=== PATIENT | female | born 1940 | race Caucasian/White ===

== ENCOUNTER 2016-09-20 04:49 | Inpatient (IN) | payer MEDICARE, OTHER ==
[~2016-09-20] VITALS: Ht 165.1 cm; Wt 69.4 kg
--- NOTE | ~2016-09-20 | HP ---
PATIENT'S NAME: CHARLEE JONES [facility] AGE: 76 Y [address] ROOM: G6309 [place], [place] [address] LOCATION: GPCU ADMIT DATE: 09/20/2016 History & Physical DISCHARGE DATE: FAMILY PHYSICIAN: Dread Mclaughlin MD ATTENDING PHYSICIAN: RENÉ TRINH DATE OF SERVICE: CHIEF COMPLAINT: This is a 76-year-old female with a chief complaint of chest pain. HISTORY OF PRESENT ILLNESS: This is a 76-year-old female who says that around 1:00 a.m. this morning, the patient woke up with substernal chest pain, about 3 to 4/10 in intensity that she described as a burning sensation, it was on and off, last for a few seconds, and radiates to her right shoulder. At the same time, she also has shortness of breath, with nausea and was also diaphoretic. The patient also felt lightheaded, but she did not have any syncope. She went to the bathroom and because she felt lightheaded, the patient fell onto the bathroom floor without any head trauma and without any loss of consciousness. The patient called her daughter on the phone. The daughter came by and called an ambulance. The patient was brought to [facility]. Over there, EKG was performed, showed ST elevation in the lead II, III, and aVF with reciprocal ST depression in lead I and aVL. Sinus rhythm at a heart rate of 69. QRS of 80, AZ of 269, and QTc of 443. The patient was started on ACS protocol regimen and was sent over here by air and underwent cardiac cath, right away and had status post one bare-metal stent to the RCA, and currently, she is in the progressive care unit and chest pain free. The patient also has a newly diagnosed lung mass, probably is lung cancer just last week and she is scheduled to have a lung mass biopsy with our radiologist tomorrow on 09/21/2016, however, this has to be postponed because the patient is on dual anti-platelet therapy after the bare-metal stent that was placed in the RCA today. Please follow up with ductfixing plumber, Dr. Lara to determine the appropriate time to undergo a lung biopsy. REVIEW OF SYSTEMS: As mentioned in the History of Present Illness. All other systems were reviewed and they were negative except for those mentioned in the History of Present Illness. PAST MEDICAL HISTORY: 1. Right lower lung mass likely cancer, diagnosed just 1 week ago in [place], and is scheduled to have a lung biopsy tomorrow with our radiologist on 09/21/2016, but has to be postponed given that the patient currently is PATIENT'S NAME: CHARLEE JONES [facility] AGE: 76 Y [address] ROOM: [place] [address] [facility] ADMIT DATE: 09/20/2016 History & Physical DISCHARGE DATE: FAMILY PHYSICIAN: Dread Mclaughlin MD ATTENDING PHYSICIAN: RENÉ TRINH on dual anti-platelet therapy after the bare-metal stent placed to the RCA. 2. The patient states that she has some kind of a blood disorder, is being followed by Dr. Phillips, but she could not tell me what was the diagnosis. She is not currently on any medication for that problem. She said it is not leukemia and she says it is not lymphoma, but she has no idea what was the name of the problem. She has been followed by Dr. Phillips, as outpatient. 3. Left breast cancer, diagnosed in 1998 without any metastasis and status post chemotherapy and left mastectomy. 4. Hypertension. 5. COPD, on 1 L oxygen nasal cannula at night. 6. Diabetes, type 2. 7. Hypothyroidism. 8. Gastroesophageal reflux disease. ALLERGIES: NO KNOWN DRUG ALLERGIES ACCORDING TO THE PATIENT. HOME MEDICATIONS: Currently are being reconciled. SOCIAL HISTORY: The patient is an active cigarette smoker about two cigarettes per day, but before she used to smoke about 1 pack per day for more than 40 years. She denies any alcohol or any illegal drug use. FAMILY HISTORY: Father from lung cancer from smoking and also had a heart problem, but she has no idea about the details. Her father at old age. Her mother from stroke and also had some heart problem, but she also does not remember any details. She also at old age from a stroke. His brother also had heart problem, but she also has no idea about the details. His brother also from heart problem. PAST SURGICAL HISTORY: 1. Status post left mastectomy. 2. Status post tonsillectomy. PHYSICAL EXAMINATION: VITAL SIGNS: At the time of my dictation, temperature is 98.0, blood pressure 170/71, heart rate of 95, MAP of 114, respirations of 14, and saturation of 92% on 2 L nasal cannula. GENERAL APPEARANCE: Alert and oriented x3, in no acute distress. HEENT: Pupils equally round and reactive to light. Extraocular muscles PATIENT'S NAME: CHARLEE JONES [facility] AGE: 76 Y [address] ROOM: [place] [address] [facility] ADMIT DATE: 09/20/2016 History & Physical DISCHARGE DATE: FAMILY PHYSICIAN: Dread Mclaughlin MD ATTENDING PHYSICIAN: RENÉ TRINH. Anicteric sclerae. Nasal turbinates are normal bilaterally. Moist oral mucosa. NECK: No JVD. CARDIOVASCULAR: Regular rate and rhythm. Normal S1 and S2. No murmurs. No rubs. No gallops. RESPIRATORY: Decreased breath sound in the right lower lung. Some crackles in the right lower lung. Decreased breath sounds diffusely, but no active wheezing, rales, or rhonchi, but she does have some crackles in the right lower lung. ABDOMEN: Obese, soft, nontender, and nondistended. Normal bowel sounds, and no hepatosplenomegaly. Bowel sounds are present. EXTREMITIES: No edema in upper or lower extremities. SKIN: No ulcer. No rash. No cyanosis. Status post cardiac cath site looks good without oozing of blood or hematoma or pseudoaneurysm on palpation. MUSCULOSKELETAL: No joint pain and no muscle pain. Range of motion intact. LABORATORY DATA: Troponin 4.6. White blood cells of 15.2, hemoglobin 11.4, hematocrit 33.4, MCV 103.1, and platelets of 490,000. Glucose 389, BUN 17, and creatinine 1.2. Sodium 133, potassium 4.6, chloride 102, CO2 of 18, and calcium 8.8. Total protein 7.3, albumin 3.1, AST 46, ALT 21, alkaline phosphatase 117, total bilirubin 0.4, magnesium 1.4, anion gap 17.6, and GFR 44. CK-MB 15.8. IMAGING STUDIES: EKG at [place] on 09/20/2016, at 4:[address]-elevation in lead II, III, and aVF with reciprocal ST depression in lead I and aVL. Repeat EKG after the cardiac cath with one bare-metal stent to the RCA on 09/20/2016 at 7:30 a.m. showed T-wave inversion in lead III and aVF, and resolution of the ST depression in I and aVL, and resolution of the ST elevation in lead II. Sinus rhythm, heart rate of 96. AZ of 166, QRS of 84, and QTc of 409. ASSESSMENT AND PLAN: 1. Regarding her inferior wall ST-elevation myocardial infarction status post one bare-metal stent to the right coronary artery: Continue current medications that have already been ordered from post cardiac catheterization order set. The patient is on nitroglycerin and on abciximab, IV fluids, as well as aspirin, Brilinta, Lopressor, enalapril, amlodipine, and also Lipitor and morphine p.r.n. Cycle cardiac enzymes and bedrest. Further plan will depend on clinical course. 2. Regarding her hypertension: Use the IV nitroglycerin drip to titrate for blood pressure control. The goal will be less than 130, but hold if systolic blood pressure is 100. Continue all the oral medications as mentioned in #1. PATIENT'S NAME: CHARLEE JONES [facility] AGE: 76 Y [address] ROOM: [place] [address] [facility] ADMIT DATE: 09/20/2016 History & Physical DISCHARGE DATE: FAMILY PHYSICIAN: Dread Mclaughlin MD ATTENDING PHYSICIAN: RENÉ TRINH 3. Regarding her diabetes, type 2: Check A1c. Continue home medications. Oral regimen with Glucotrol Extended Release 10 mg p.o. b.i.d. with meals. In addition, I will start her on subcutaneous aspart moderate dose a.c. and bedtime. Check the fingerstick right now and give one dose right now. 4. Regarding her right lower lung mass: Concerning for cancer. The patient has an appointment tomorrow with the radiologist here in our hospital on 09/21/2016, for a right lung mass biopsy, however, this had to be canceled and postponed given that the patient is currently on dual anti- platelet therapy. Please touch base with kitchen worker, Dr. Lara to see when is the appropriate time to perform the lung biopsy. 5. Regarding her chronic obstructive pulmonary disease on 1 L nasal cannula at night: Continue oxygen at nasal cannula to titrate for saturation more than 90%. In addition, I will give her Tessalon which is her home medication for the cough. I will get a chest x-ray right now because she does have right lower lung crackles on examination. The patient states that she chronically has leukocytosis and is being followed by Dr. Phillips, but she does not know the details of the diagnosis. She denies any fever or chills or worsening cough. I will also give her nebulization with Xopenex plus Atrovent q.6 hours one dose right now and then p.r.n. by RT for RSS. In addition, also give her Xopenex 1.2 mg nebulization q.2 hours p.r.n. also by RT for RSS. 6. Regarding her hypothyroidism: Continue home medication of levothyroxine. However, I will check a TSH and titrate the dose if necessary. 7. Regarding her left breast cancer diagnosed in 1998 status post chemotherapy and also left mastectomy: No active issue. 8. Regarding her deep venous thrombosis prophylaxis: Currently, she is on abciximab drip. Time spent in care on the day of admission 35 minutes where 20 minutes were spent in counseling, including going over the plan of care and addressing all the questions and concerns for the patient to her satisfaction. The remaining of the time was spent on chart review and interview, and also on physical examination. Further plan will depend on her clinical course. RENÉ TRINH MD CC/modl /[id number] D: [id number] T: [id number] HISTORY & PHYSICAL
--- NOTE | ~2016-09-20 | HP ---
PATIENT'S NAME: CHARLEE JONES [facility] AGE: 76 Y [address] ROOM: [address] [address] [facility] ADMIT DATE: 09/20/2016 History & Physical DISCHARGE DATE: FAMILY PHYSICIAN: Dread Mclaughlin MD ATTENDING PHYSICIAN: RENÉ TRINH DATE OF SERVICE: ADDENDUM: ASSESSMENT AND PLAN: The patient also has a creatinine of 1.2 and GFR of 44, not sure if this is acute kidney injury or chronic kidney disease given that we do not have any prior laboratories to compare. The patient is status post cardiac catheterization, therefore, she had contrast exposure. We will continue IV fluids as currently ordered with normal saline running at 125 mL/hour. In addition to hypertension, the IV nitroglycerin drip will be titrated to keep the systolic blood pressure less than 130. Further plan will depend on clinical course. RENÉ TRINH MD CC/modl /[id number] D: [id number] T: [id number] HISTORY & PHYSICAL
--- NOTE | ~2016-09-20 | ECHO ---
Transthoracic Echocardiography Report (TTE) Demographics Patient Name CHARLEE JONES Date of Study 09/21/2016 Patient Number [id number] Visit Number [id number] Date of 1940 Room Number G6309 Gender Female Number Age 76 year(s) Referring Jane Canada MD Agri Business Agent Mecca Andersen, Physician RT,RVT,RDCS Physician Interpreting Jane Canada MD Supervisor Cloth Winding Physician Supervising Ordering Jane Canada MD, MD/MLP Physician Nurse Stress Immunology Specialist Conclusions Contractility Score Summary Normal Left Ventricular contractility was noted. Summary The estimated left ventricular ejection fraction is 60-65%. Mild concentric left ventricular hypertrophy. Mild mitral annular calcification. Mild mitral regurgitation by color Doppler. Mild tricuspid regurgitation by color Doppler. Procedure Type of Study TTE procedure:2D Echocardiogram, M-Mode, Doppler , Color Doppler. Procedure Date Date: 09/21/2016 Start: 01:16 PM Study Location: Inpatient Portable Technical Quality: Adequate visualization Indications:Chest pain. Appropriate Use Criteria: 9 Patient Status: Routine HR: 89 bpm BP: 118/57 mmHg Allergies - Codiene. - Sulfa. M-Mode/2D Measurements LV Diastolic Dimension: 4 cm LV Systolic Dimension: 2.7 cm LV Septum Diastolic: 1.23 cm LV PW Diastolic: 1.1 cm AO Root Dimension: 2.7 cm Cardiac Output: 5.78 l/min AV Cusp Separation: 1.6 cm RV Diastolic Dimension: 3.31 cm LA volume: 28 ml MV EPSS: 0.4 cm LVOT: 2 cm LVOT VTI: 20.7 cm LV Stroke volume: 65 ml Doppler Measurements AV Peak Velocity: 1.21 m/s MV Peak E-Wave: 1.01 m/s AV Peak Gradient: 5.86 mmHg MV Peak A-Wave: 1.14 m/s AV Mean Gradient: 3 mmHg MV E/A Ratio: 0.89 LVOT Peak Velocity: 0.87 m/s MV P1/2t: 79 msec TR Gradient:22.85 mmHg PV Peak Velocity: 0.95 m/s Estimated RAP:10 mmHg PV Peak Gradient: 3.62 mmHg Estimated RVSP: 33 mmHg Estimated PASP: 32.85 mmHg E' Septal Velocity: 0.06 m/s A' Septal Velocity: 0.1 m/s MV E/E' Ratio: 17.7 Findings Left Ventricle Mild concentric left ventricular hypertrophy. Mild inferolateral hypokinesis Diastolic assessment reveals Grade I diastolic dysfunction. Right Ventricle Normal right ventricle structure and function. Left Atrium Normal left atrial size. Right Atrium Normal right atrial size. Mitral Valve Mild mitral annular calcification. Mild mitral regurgitation by color Doppler. Mild to moderate calcification of the mitral valve. Aortic Valve Normal aortic valve structure and function. Tricuspid Valve Mild tricuspid regurgitation by color Doppler. Pulmonic Valve Normal pulmonic valve structure and function. Pericardial Effusion No evidence of pericardial effusion. Miscellaneous Visualized portions of the aortic root and ascending aorta appear normal in size. Pleural Effusion No evidence of pleural effusion. Contractility Score LV regional wall motion:(0-Non visualized 1-Normal 2-Hypokinesis 3-Akinesis 4-Dyskinesis 5-Aneurysm) Signature dtt: Dread Lara (cardio) dtd: 09/21/16 1316
--- NOTE | ~2016-09-20 | CATH ---
Cardiac Diagnostic + PCI Report Demographics Patient Name ROBERT DESHPANDE Gender Female Date of 1940 Age 76 year(s) Patient Number [id number] Date of Study 09/20/2016 Visit Number [id number] Room Number G6309 Corporate ID Ht 165.1 cm Wt 70.31 kg Referring Jnae Canada MD Primary Physician Physician Arnoldo Ellington MD Performing Jane Canada MD Secondary Physician Physician Diagnostic Jane Canada MD Assisting Physician Physician Interventional Jane Canada MD Physician Certified Appliance Service Technician Physician Findings and Conclusions Diagnostic Findings and Conclusion Severe 1 vessel CAD. Diagnostic Recommendations PCI RCA. Interventional Findings and Conclusion 0.014 Prowater. 2.0 x 20 Emerge 2.5 x 24 Rebel to 2.73 with 0% residual. Interventional Recommendations DAPT x 1 month. Manual pressure for hemostasis. Risk factor modification. Procedure Description The patient was brought to the diagnostic cardiac catheterization-EP laboratory in the fasting, non-sedated state. Informed consent was obtained in the written and verbal form after the risks and benefits were explained. The patient had no further questions and agreed to proceed. The planned puncture-incision site(s) were shaved and prepped with ChloraPrep and draped in the usual sterile manner. Conscious sedation, supplemental oxygen, and pain control medications were delivered by a registered nurse under physician guidance. Surface ECG rhythm, blood pressure measurement, and pulse oximetry were monitored throughout the procedure. Arterial access. The access site was infiltrated with lidocaine. The vessel was entered with the Seldinger technique. A sheath was advanced into the vessel and used for catheter placement. Selective left coronary angiography. A catheter was advanced into the left coronary vessel ostium under Fluoroscopic guidance. Contrast was injected by hand. Images were obtained in multiple projections. Selective right coronary angiography. A catheter was advanced into the right coronary vessel ostium under fluoroscopic guidance. Contrast was injected by hand. Images were obtained in multiple projections. Left heart catheterization. A catheter was advanced across the aortic valve to the left ventricle under fluoroscopic guidance. Resting hemodynamics were obtained. Angioplasty and Stent Placement: A guiding catheter was used to intubate the vessel. A 0.14 wire was then used to cross the lesion. A balloon catheter was placed across the lesion and inflated. The balloon catheter was then removed. A Bare Metal Stent was placed and inflated. Post placement angiograms were performed. Arterial artery hemostasis was achieved. The patient was transferred to a regular nursing floor via cart accompanied by a nurse. The patient left the laboratory in stable condition. Diagnostic Cath Status: Emergency Interventional Cath Status: Emergency Procedure Procedure Type Diagnostic procedure:Angiography:, Coronary Angios /[facility] PCI procedure:Bare Metal Coronary Stent:, RCA Indications: Acute ID. Angiographic Findings Dominance: Right Cardiac Arteries and Lesion Findings LMCA: Lesion on LMCA: Ostial.80% stenosis . Comments:Heavily calcified. Lesion on LMCA: Distal subsection.60% stenosis . LAD: Abnormal.Heavily calcified - diffuse plaque. Diagonal 1 small, okay. LCx: Large, non-dominant. Mild plaque. OM 1 small, okay. OM 2 large, normal. RCA: Abnormal.Calcified. PL small, okay. PDA medium, normal. Lesion on Mid RCA: Mid subsection.99% stenosis 24 mm length reduced to 0%. Pre procedure ALEENA II flow was noted. Post Procedure ALEENA III flow was present. The guidewire cross was successful.The lesion was diagnosed as a high risk lesion.Culprit lesion. Treatment results:Interventional treatment was successful. Devices used - SpectraSciencewater Wire .014 x 180. Number of passes: 1. - Emerge Balloon 2.0 x 20. 2 inflation(s) to a max pressure of: 14 rashmi. - 2.5 x 24 Rebel Stent. 2 inflation(s) to a max pressure of: 16 rashmi. Coronary Tree Procedure Data Procedure Date Date: 09/20/2016Start: 06:20 AMEnd: 07:00 AM Entry Locations - Retrograde Percutaneous access was performed through the Right Femoral artery (Primary location). A 6 Fr sheath was inserted. Hemostasis was successfully obtained using Suture. Closure Comments: Sutured in to be pulled on PCU by RT. Jules. Procedure Medications Order and Administration + + + + + !Time !Medication !Dosage !Route ! + + + + + !09/20/2016 06:31 AM!Heparin (ACC_3) !3000 units!I.V. ! + + + + + !09/20/2016 06:31 AM!Heparin (ACC_3) ! !I.V. drip ! + + + + + !09/20/2016 06:36 AM!Nipride !70 mcg !I.C. ! + + + + + !09/20/2016 06:45 AM!Nipride !100 mcg !I.C. ! + + + + + !09/20/2016 06:54 AM!Brilinta (Ticagrelor) (ACC_20)!180 mg !P.O. ! + + + + + !09/20/2016 06:54 AM!Nitroglycerin !5 mcg/min !I.V. drip ! + + + + + Devices Used - A6 Fr. BS JR 4 Diag. Catheterwas used for:Right coronary angiography. - A6 Fr. BS JL 4 Diag. Catheterwas used for:Left coronary angiography. - A6 Fr. BS Angled Pigtail Diag. Catheterwas used for:LV Pressures. - A6 Fr. JR4 Guide Catheterwas used for:RCA Intervention. Contrast Material - Isovue [id number] ml Fluoroscopy Time: Diagnostic: 8:48 minutes. Total: 8:48 minutes. Fluoroscopy Dose: Diagnostic: 882 mGy. Total: 882 mGy. Estimated Blood Loss: 4 ml. Additional [employer] PCI Information PCI Indication:Immediate PCI for STEMI. The patient was transferred from another facility for immediate PCI for STEMI. Date/time ED Presentation at Referring Facility:09/20/2016 04:50 AM. Non-system Reason for Delay in PCI:None. Medical History Performed Procedures and Imaging Results - No [employer] stress or imaging studies were performed. Allergies - Codiene. - Sulfa. Risk Factors The patient risk factors include:Current/Recent(w/in 1 year) tobacco use. Admission Data Admission Date: 09/20/2016 Admission Time: 06:07 AM Admit Source: Transfer acute care facility Insurance Payors: Medicare. Clinical Evaluation Leading to Procedure - The patient's CAD presentation was assessed as: STEMI. - The patient's anginal syndrome during the past two weeks was assessed as: Class IV according to the [place] Cardiovascular Society Classification System (CCS). Hemodynamics Condition: Rest O2 Consumption: Estimated: 176.77Heart Rate: 93 bpm Pressures (mmHg) +-----+ + !Site !Pressure ! +-----+ + !AO !168/97 (116) ! +-----+ + !LV !159/2 ,22 ! +-----+ + !LV !160/1 ,23 ! +-----+ + !AO !167/62 (107) ! +-----+ + !LV !160/2 ,24 ! +-----+ + !AO !167/66 (109) ! +-----+ + Valve Gradients and Areas + +---------+---------+---------+ +---------+ + !Valve !Peak !Mean !Area !Index !Flow !Source ! + +---------+---------+---------+ +---------+ + !Aortic !0 !0 ! ! ! ! ! + +---------+---------+---------+ +---------+ + !Aortic !0 !0 ! ! ! ! ! + +---------+---------+---------+ +---------+ + Shunts Oxygen Values O2 Consumption 176.77 Discharge Data Discharge Date: 09/22/2016 Hospital Status: Inpatient Signatures dtt: Dread Lara (cardio) dtd: 09/20/16 0620 Physician Self Edit
--- NOTE | ~2016-09-20 | DS ---
PATIENT'S NAME: CHARLEE JONES [facility] AGE: 76 Y [address] ROOM: [address] [place], [place] [address] LOCATION: GPCU ADMIT DATE: 09/20/2016 Discharge Summary DISCHARGE DATE: 09/22/2016 FAMILY PHYSICIAN: Dread Mclaughlin MD ATTENDING PHYSICIAN: Magdi Lawson PRIMARY DIAGNOSES: 1. Inferior wall myocardial infarction. 2. Diabetes. 3. Chronic conditions includes diabetes type 2, essential hypertension, hypothyroidism, and other acute conditions includes acute kidney injury and other chronic conditions includes recent diagnosis of lung mass. LABORATORY DATA: On admission, WBC was 15.2, prior to discharge was 13.4, was stable, H and H on admission was 11.4/33.4, prior to discharge was 10.2/29.7, was also stable throughout the hospital stay. Creatinine on admission was 1.2, prior to discharge was 0.7, potassium on admission was 4.6, prior to discharge was 3.6, was repleted, prior to discharge. Magnesium was 1.4 on admission, was repleted twice with 2 g of magnesium IV, prior to discharge was 1.6, bicarb on admission was 18, prior to discharge was 24. Liver function test was within normal limit. Hemoglobin A1c was 9.1. Total cholesterol was 154, triglycerides was 123, and HDL was 49. Echocardiogram post WY, ejection fraction 60% to 65%, mild left ventricular hypertrophy, mild mitral regurgitation by color Doppler, mild tricuspid regurgitation. HOSPITAL COURSE: For history of present illness, please take a look at the H and P, which was done by Dr. Lawson. The patient was admitted after she had an intervention to a stent put in her RCA and the hospitalist was consulted for medical management. Postprocedure, the patient continued to remain stable, she was kept in the ICU, her medical problems were stable, blood pressure was controlled; and with hydration, her acute kidney injury also resolved. She was visited by Dr. Uribe for the new lung mass and who has set the patient up to continue to follow up with them as outpatient. The Cardiology also did get post WY echocardiogram, which essentially appeared to be stable. The patient also did have some anxiety during the hospital stay, which was controlled with Xanax. Her initial scheduled lung biopsy had to be canceled given the recent WY and the placement of a bare metal stent for which the patient has to be on Brilinta for. Later date of the lung biopsy will be setup by the diagnostic assistant and the oncologist; so, on the day of discharge, vital signs were stable, and the patient was discharged home. MEDICATIONS ON DISCHARGE: Includes: 1. Norvasc 2.5 mg p.o. at bedtime, dose change. 2. Aspirin 81 mg p.o. daily. 3. Lipitor 80 mg p.o. daily, new medication. PATIENT'S NAME: CHARLEE JONES [facility] AGE: 76 Y [address] ROOM: [place] [address] [facility] ADMIT DATE: 09/20/2016 Discharge Summary DISCHARGE DATE: 09/22/2016 FAMILY PHYSICIAN: Dread Mclaughlin MD ATTENDING PHYSICIAN: Magdi Lawson 4. Vasotec 2.5 mg p.o. daily, new medication. 5. Glipizide 20 mg p.o. twice daily before meals. 6. Hydroxyurea 1 g p.o. daily q.h.s. 7. Xalatan 1 drop ophthalmic every night at bedtime. 8. Synthroid 112 mcg p.o. daily before breakfast. 9. Magnesium oxide 400 mg b.i.d. 10. Multivitamin 1 tablet p.o. daily. 11. Lopressor 25 mg p.o. twice daily. 12. Prilosec 20 mg p.o. twice daily. 13. Brilinta 90 mg p.o. twice daily. 14. Sleep aid 50 mg p.o. q.h.s. p.r.n. 15. Tessalon 100 mg p.o. 3 times daily p.r.n., new medication. 16. Percocet 5/325 mg 1 tablet p.o. q.6 h. p.r.n. 17. Advair 250/50 Diskus 1 puff twice daily. MD MYLES CARVALHO/alexandro /[id number] d: 09/23/16 0102 t: 09/27/16 1303, DISCHARGE SUMMARY
--- NOTE | ~2016-09-20 | CON ---
PATIENT'S NAME: CHARLEE JONES [facility] AGE: 76 Y [address] ROOM: [address] [place], [place] [address] LOCATION: GPCU ADMIT DATE: 09/20/2016 Consultation DISCHARGE DATE: 09/22/2016 FAMILY PHYSICIAN: Dread Mclaughlin MD ATTENDING PHYSICIAN: Magdi Lawson DATE OF CONSULTATION: 09/20/2016 REFERRING PHYSICIAN: Dread Denton MD REFERRING PHYSICIAN: Norberto Whittington PA-C. HISTORY OF PRESENT ILLNESS: This is a 76-year-old female, who states that she awoken around 1 a.m. on day of admission. She had substernal chest pain, rating at about 4/10. She described it as a burning sensation and it waxed and waned for a few seconds, then it radiated into her right shoulder. She became very short of breath and nauseous with this. She was also quite diaphoretic. She then felt kind of lightheaded and was going to go to the bathroom because she thought she might vomit and went down to her knees. She denies hitting her head. She denies loss of consciousness. She was able to call her daughter on the phone and she was subsequently transferred to the [facility] to their emergency room. The initial EKG is showing ST-elevation RI in the inferior leads and therefore Dr. Denton was contacted and she was transferred via air care to [place]. She was started on heparin, received nitro, aspirin, oxygen, ReoPro, Zofran as well as morphine prior to her transfer. The patient arrived at [facility] at 0615 hours and was taken to the slab depiler operator after briefly being assessed by Dr. Denton. In [place], her initial hemoglobin was 12.5 and hematocrit 36.6. Creatinine on admission was 1.2, potassium 4.6, and magnesium was 1.4. Her initial cardiac enzymes showed a troponin I of 19.43, CPK was 396, and her CK-MB was 24.7. She reports she has been feeling pretty good prior to this episode of chest pain. She has been recently diagnosed with a lung mass and was planning to have a biopsy with radiologist on 09/21/2016. She does carry a history of breast cancer and is post left mastectomy. PAST MEDICAL HISTORY: 1. Coronary artery disease with inferior wall myocardial infarction on September 20, 2016. 2. Breast cancer with mastectomy on the left. 3. Lung mass. 4. Hypertension. 5. Hypothyroidism. 6. COPD. 7. Current tobacco use. PATIENT'S NAME: CHARLEE JONES [facility] AGE: 76 Y [address] ROOM: [place] [address] LOCATION: GPCU ADMIT DATE: 09/20/2016 Consultation DISCHARGE DATE: 09/22/2016 FAMILY PHYSICIAN: Dread Mclaughlin MD ATTENDING PHYSICIAN: Magdi Lawson 8. Generalized arthritis. 9. Gastritis. 10. Gastroesophageal reflux disease. 11. Diabetes mellitus. 12. Some sort of blood disorder, being followed by Dr. Phillips. PAST SURGICAL HISTORY: Left mastectomy, left heart catheterization on 09/20/2016, PTCI had stent bare- metal to RCA. She is post tonsillectomy. ALLERGIES: SULFA AND CODEINE. CURRENT MEDICATIONS: 1. Glipizide 10 mg b.i.d. 2. Levothyroxine 112 mcg daily. 3. Omeprazole 20 mg daily. 4. Multivitamin daily. 5. Glucosamine 1500 mg daily. 6. Aspirin 81 mg daily. 7. Amlodipine 5 mg daily. 8. Hydroxyurea 500 mg twice a day. 9. Zoloft 50 mg daily. 10. Tessalon Perles 100 mg 3 times a day. SOCIAL HISTORY: She is an active cigarette smoker. She smokes 2 cigarettes a day, but before that she used to smoke a pack of cigarettes a day for more than 40 years. She denies alcohol use. FAMILY HISTORY: Father of lung cancer from smoking, he also had some sort of heart problems, he was older age when he . Mother from the CVA, she also had some heart problems. She has a brother, who had "heart problems" and another brother who also of heart problems. REVIEW OF SYSTEMS: GENERAL: She denies fatigue. HEAD: No history of headache. EYES: No blurred vision. She wears corrective lenses. EARS: No problems with hearing. NOSE: No epistaxis. MOUTH: She has full set of dentures. No difficulty swallowing. PULMONARY: She has a lung mass. She has chronic cough and history of COPD. CV: Per HPI. PATIENT'S NAME: CHARLEE JONES [facility] AGE: 76 Y [address] ROOM: [address] [place], [place] [address] LOCATION: GPCU ADMIT DATE: 09/20/2016 Consultation DISCHARGE DATE: 09/22/2016 FAMILY PHYSICIAN: Dread Mclaughlin MD ATTENDING PHYSICIAN: Magdi Lawson GI: She has not had any problems with nausea or vomiting. She does have chronic diarrhea. : Negative for urinary frequency or urgency. No problems with urinary tract infections. PHYSICAL EXAMINATION: VITAL SIGNS: She is 5 feet and 5 inches tall, she weighs 155 pounds, blood pressure 171/76, and pulse was 98 on admission. SKIN: Warm, dry, and pink. HEENT: Pupils equal, round, and react briskly. NECK: Soft and supple. No lymphadenopathy. No thyromegaly. JVD is flat. No carotid bruits were noted. LUNGS: Lung sounds were diminished throughout with occasional wheezes. CV: Regular with a normal S1 and S2. She does have ST-elevation noted in the inferior leads on EKG. PMI is nondisplaced. ABDOMEN: Obese, but soft. Bowel sounds are present in all 4 quadrants. EXTREMITIES: Showed trace of peripheral edema. NEUROLOGIC: She is alert, oriented, and answers questions appropriately. DERMATOLOGIC: No skin, hair, or nail changes that are concerning. PSYCHIATRIC: Her mood is pleasant and cooperative. LABORATORY DATA: Labs are per HPI. ASSESSMENT: 1. Inferior wall myocardial infarction. She will be taken directly to cardiac cath for further evaluation and probable PTCI and stent. She will be placed on LEROY inhibitor, beta-cindy, and aspirin therapy as well as statin therapy. 2. Probable lung cancer. We will anticipate using a bare metal stent given the need for a biopsy fairly recent. 3. Hypertension. We will continue with current home medications, adding beta-cindy and LEROY inhibitor therapy. We will decrease the Norvasc if her blood pressures tend into fall. 4. Hypothyroid. We will continue with her current medications. 5. Diabetes mellitus. We will get a hemoglobin A1c. 6. Diarrhea, intermittent, chronic in nature. Hospitalist is planning on looking into this after her heart cath. The assessment and plan, history of present illness, and physical exam are per Dr. Dread Denton. We would like to thank Dr. Dread Mclaughlin as well as Norberto Whittington for allowing us to participate in her care. PATIENT'S NAME: CHARLEE JONES [facility] AGE: 76 Y [address] ROOM: [address] [place] [id number] LOCATION: [facility] ADMIT DATE: 09/20/2016 Consultation DISCHARGE DATE: 09/22/2016 FAMILY PHYSICIAN: Dread Mclaughlin MD ATTENDING PHYSICIAN: Magdi Lawson PA LARA APRN FOR DREAD DENTON MD TGP/modl /[id number] d: 09/24/165 t: 09/29/16 1123, CONSULTATION REPORT
[2016-09-20 06:32] LABS: BASOPHIL % 0.3 %; EOSINOPHIL % 0.3 %; HEMATOCRIT 33.4 % (33.0-46.0); HEMOGLOBIN 11.4 g/dL (10.0-15.0); IMMATURE GRANULOCYTE # 0.2 K/uL (0.0-0.3); IMMATURE GRANULOCYTE % 1.1 %; LYMPHOCYTE # 1.6 K/uL (0.8-4.0); LYMPHOCYTE % 10.2 %; MCH 35.2 pg (27.0-34.0); MCHC 34.1 gm/dL (32.0-36.5); MCV 103.1 fl (83.0-98.0); MONOCYTE # 1.3 K/uL (0.0-1.0); MONOCYTE % 8.3 %; MPV 10.1 fl (9.4-12.4); NEUTROPHIL # (ANC) 12.2 K/uL (1.8-7.8); NEUTROPHIL % 79.8 %; NRBC % 0 /100WBC (0-0.00); PLATELET COUNT 490 K/uL (150-450); RBC 3.24 M/uL (3.50-5.50); RDW-CV 13.3 % (11.9-14.6); WBC 15.2 K/uL (4.0-11.0)
[2016-09-20] MEDS ORDERED: GLUCOTROL XL10 MG PO (07:22)
[2016-09-20] MEDS ORDERED: PRILOSEC20 MG PO (07:23)
[2016-09-20] MEDS ORDERED: LEVOTHROID (S112 MCG PO (07:23)
[2016-09-20] MEDS ORDERED: THERA-VITE W/ B1 TAB PO (07:23)
[2016-09-20] MEDS ORDERED: GLUCOSAMINE H1500 MG PO (07:24)
[2016-09-20] MEDS ORDERED: NORVASC5 MG PO (07:24)
[2016-09-20] MEDS ORDERED: ASPIRIN LO-DOSE81 MG PO (07:24)
[2016-09-20] MEDS ORDERED: ZOLOFT50 MG PO (07:25)
[2016-09-20] MEDS ORDERED: TESSALON PERLE100 MG PO (07:25)
[2016-09-20] MEDS ORDERED: HYDREA500 MG PO (07:25)
[2016-09-20] MEDS ORDERED: MAG-OX-400(241400 MG PO (07:33)
[2016-09-20 07:42] LABS: ALBUMIN 3.1 gm/dL (3.5-5.0); ANION GAP 17.6 (10.0-19.0); CALCIUM 8.8 mg/dL (8.5-10.5); CREATININE 1.2 mg/dL (0.5-1.1); POTASSIUM 4.6 mMol/L (3.7-5.1); TOTAL PROTEIN 7.3 g/dL (6.0-8.4)
[2016-09-20 07:43] LABS: MAGNESIUM 1.4 mg/dL (1.8-2.6); TOTAL BILIRUBIN 0.4 mg/dL (0.0-1.5)
--- NOTE | 2016-09-20 16:06 | NUR ---
PATIENT ADMITED FOR STEMI FROM [place]. STARTED HAVING CHEST PAIN AROUND 1AM AT HOME WHICH WOKE HER UP, PAIN WAS A 3-4/10, THAT WAS A BURNING SENSATION ON/OFF THEN STARTED TO RADIATE TO HER RIGHT SHOULDER. AT THIS TIME SHE STARTED HAVING SOB WITH NAUSEA AND WAS DIAPHORETIC. PT. DID FALL TO THE BATHROOM FLOOR WHEN GETTING UP TO THE BATHROOM. AROUND THIS TIME SHE PRCEEDED TO CALL HER DAUGHTER WHO CALLED EMS, PT. WAS TAKEN TO [facility] THEN TRANSFERED TO [facility] VIA FLIGHT. HX: BREAST CA, L)MASTECTOMY, TONSILLECTOMY, GLAUCOMA, ARTHRITIS, COPD-WEARS O2 @ NIGHT. PT. UP FROM [facility]OLDING [facility]ANDER @ 0719, VS-171/76, 98, 18, 98.3, 97% ON 4L NC. SHEALTH TO RIGHT GROIN SITE, ACT @ 0800 & RESULTS NEED TO BE CALLED TO DR. DENTON. DR. TRINH TO ADMIT. NO COMPLAINTS OF PAIN AT THIS TIME.
--- NOTE | 2016-09-20 17:11 | NUR ---
Significant Event: A/PX3, VSS ON ROOM AIR, PT. DOES WEAR 1-2L O2 @ NIGHT. COMPLAINTS OF BACK PAIN, REPOSITIONED IN BED & WHEN ABLE TO GET PT. UP SHE DANGLED @ BEDSIDE, BACK PAIN A LITTLE BETTER, REFUSED PAIN MEDS. BARE METAL STENT TO RCA, RIGHT GROIN CATH SITE, SOFT, NO HEMATOMA OR BRUISING NOTED TO SITE, GAUZE/TEGADERM DRESSING IS C/D/I, SHEALTH WAS PULLED @ 0935. PT. OFF OF BEDREST, DID DANGLE @ BEDSIDE & GET UP TO BATHROOM. SLIV TO R)AC, REOPRO STILL RUNNING TO R)HAND IV, WHEN DONE CAN BE SHUT OFF. NS & NTG DRIP OFF @ 1445. LG FORMED BM X1. FAMILY HERE IN ROOM, DAUGHTER TO SPEND THE NIGHT. Follow up: CONTINUE WITH POC.
[2016-09-20] MEDS ORDERED: XALATAN2.5 ML OPHTH (21:07)
--- NOTE | 2016-09-21 01:26 | NUR ---
WASNT ABLE TO PERFORM IS AT THIS TIME DUE TO ANXIETY AND SOB.
[2016-09-21 02:26] LABS: BASOPHIL % 0.3 %; EOSINOPHIL # 0.2 K/uL (0.0-0.5); EOSINOPHIL % 1.1 %; HEMATOCRIT 31.5 % (33.0-46.0); HEMOGLOBIN 10.8 g/dL (10.0-15.0); IMMATURE GRANULOCYTE # 0.1 K/uL (0.0-0.3); IMMATURE GRANULOCYTE % 0.5 %; LYMPHOCYTE # 2.6 K/uL (0.8-4.0); LYMPHOCYTE % 18.3 %; MCH 35.3 pg (27.0-34.0); MCHC 34.3 gm/dL (32.0-36.5); MCV 102.9 fl (83.0-98.0); MONOCYTE # 1.3 K/uL (0.0-1.0); MONOCYTE % 9.1 %; MPV 9.8 fl (9.4-12.4); NEUTROPHIL # (ANC) 9.9 K/uL (1.8-7.8); NEUTROPHIL % 70.7 %; NRBC % 0 /100WBC (0-0.00); PLATELET COUNT 511 K/uL (150-450); RBC 3.06 M/uL (3.50-5.50); RDW-CV 13.5 % (11.9-14.6)
[2016-09-21 02:50] LABS: ALBUMIN 2.8 gm/dL (3.5-5.0); ALK PHOS 103 IU/L (33-138); ALT 28 IU/L (12-78); ANION GAP 12.7 (10.0-19.0); AST 94 IU/L (10-40); BLOOD UREA NITROGEN 17 mg/dL (6-24); CALCIUM 8.6 mg/dL (8.5-10.5); CHLORIDE 104 mMol/L (96-110); CO2 23 mMol/L (22-32); CREATININE 0.9 mg/dL (0.5-1.1); ESTIMATED GFR (MDRD EQUATION) > 60; POTASSIUM 3.7 mMol/L (3.7-5.1); SODIUM 136 mMol/L (135-145); TOTAL BILIRUBIN 0.4 mg/dL (0.0-1.5); TOTAL PROTEIN 6.8 g/dL (6.0-8.4)
--- NOTE | 2016-09-21 05:01 | NUR ---
Significant event: A/O x 3. Up in jiang x 1 with 1 assist. [place] intact, patient refused for it to be pulled last noc per protocol so she could get some rest. 400ml of UOP. Patient has some anxiety at night that is keeping her from sleeping to the point she almost has panic attacks. I was able to get ativan and ambien ordered for her last night and the combination has seemed to work well for her so far. She states she has been having these problems for some time. There is also a question on her home med list that needs verified by her pharmacy this morning regaurding the dose of a medication. right groin site is c/d/I and soft.
[2016-09-21] MEDS ORDERED: SLEEP AID50 MG PO (11:22)
[2016-09-21] MEDS ORDERED: ALEVE220 M1 PO (11:23)
[2016-09-21] MEDS ORDERED: ADVAIR 250-501 EACH INH (11:24)
[2016-09-21] MEDS ORDERED: PERCOCET 5-3251 EACH PO (11:24)
--- NOTE | 2016-09-21 11:44 | NUR ---
Introduced self and role of care management to patient. She lives in [place] by herself. She states that she is able to do all her own ADL's. She has a daughter that lives in town that assists as needed. She plans on returning home on discharge. She denies any needs at this time. Will continue to follow.
--- NOTE | 2016-09-21 11:59 | NUR ---
[facility] note: 1000 Met with patient to discuss recent A1C of 9.1 % on 09/20/16. Patient states, "...I haven't been taking very good care of my diabetes". Patient has several other medical conditions and is currently only on oral Glucotrol XL at home, may need to add other medications to assist in overall blood sugar control. At this time the Diabetes Management booklet and Diabetes Survival Skills assessment form is left with patient and CDE encouraged her to complete, so that we can assess any educational needs while she is here in the hospital. Anticipate for patient to be here a few days yet, as per Khadra DUFFY, so will continue to follow blood sugars and make recommendations.
--- NOTE | 2016-09-21 15:24 | NUR ---
Significant Event: pt had ECHO done. Pt amb jiang with therapy ok. No c/o cp. MG 2 gram given. Pt anxious and short of breath, xanax worked really well. [address] HARRIS to see tomorrow before pt is discharged. Pt family here with her. Standby to bathroom. Danuta winkler pt voided, not drinking much uop marginal. Pt short of breath to tell dr Lara if worsens can change brillinta. Bandaid to r)groin c/d/i. Follow up:
[2016-09-22 03:38] LABS: BASOPHIL % 0.2 %; EOSINOPHIL # 0.3 K/uL (0.0-0.5); HEMATOCRIT 29.7 % (33.0-46.0); HEMOGLOBIN 10.2 g/dL (10.0-15.0); IMMATURE GRANULOCYTE # 0.1 K/uL (0.0-0.3); IMMATURE GRANULOCYTE % 0.4 %; LYMPHOCYTE # 3.5 K/uL (0.8-4.0); LYMPHOCYTE % 26.2 %; MCH 35.8 pg (27.0-34.0); MCHC 34.3 gm/dL (32.0-36.5); MCV 104.2 fl (83.0-98.0); MONOCYTE # 1.3 K/uL (0.0-1.0); MONOCYTE % 9.5 %; MPV 9.6 fl (9.4-12.4); NEUTROPHIL # (ANC) 8.3 K/uL (1.8-7.8); NEUTROPHIL % 61.7 %; NRBC % 0 /100WBC (0-0.00); PLATELET COUNT 543 K/uL (150-450); RBC 2.85 M/uL (3.50-5.50); RDW-CV 13.7 % (11.9-14.6); WBC 13.4 K/uL (4.0-11.0)
[2016-09-22 03:51] LABS: ANION GAP 11.6 (10.0-19.0); BLOOD UREA NITROGEN 19 mg/dL (6-24); CALCIUM 8.4 mg/dL (8.5-10.5); CHLORIDE 105 mMol/L (96-110); CO2 24 mMol/L (22-32); CREATININE 0.7 mg/dL (0.5-1.1); ESTIMATED GFR (MDRD EQUATION) > 60; MAGNESIUM 1.6 mg/dL (1.8-2.6); POTASSIUM 3.6 mMol/L (3.7-5.1); SODIUM 137 mMol/L (135-145)
--- NOTE | 2016-09-22 05:31 | NUR ---
Significant Event: A/0X3. RESTED IN BED ALL OF SHIFT. TURNS SELF. SBA UP TO BR. AFEBRILE. VSS ON RA. 1L 0F 02 AT HS. IV TO R) AC AND R) HAND SL. 3RD ASSESSMENT I WOKE PT UP FOR VITALS. PATIENT HAD C/O OF NOT FEELING RIGHT, SICK TO STOMACH, SOB, AND PRESSURE/HEAVINESS IN THE MIDDLE OF HER CHEST AND BACK SORENESS. STAT EKG AND ENZYMES DRAWN. ALSO GAVE NITRO SUB LINGUAL X1 AND IV MORPHINE X1. ALSO GAVE A DOSE OF ZOFRAN. INCREASED 0XYGEN TO 2L PER ACLS PROTOCOL. ENZYMES TRENDING DOWN. PATIENT WAS ABLE TO FIND RELIEF AND NO MORE CHEST PRESSURE. CALLED CARDIOLOGY AND UPDATED HIM. TOLD TO MONITOR. VOIDS FINE. DIDNT DRINK MUCH THIS SHIFT. NO BM. Follow up: CONTINUE WITH PLAN. MONITOR FOR CHEST PRESSURE.
[2016-09-22] MEDS ORDERED: LIPITOR80 MG PO (10:47)
[2016-09-22] MEDS ORDERED: VASOTEC2.5 MG PO (10:47)
--- NOTE | 2016-09-22 10:48 | NUR ---
Diabetes consult: Patient with A1C of 9.1% and planning to discharge to home today. Patient reports her last A1C 2 monhts prior was 8.7%. She reports taking glucotrol 20 mg twice daily at home. The patient reports having a history of gestational diabetes and having to use insulin throughout her preganancy. Reports several years after delivery she developed Type II diabetes and has been on glucotrol exclusively. She denies having tried metformin. Patient's GFR is >60 and creat is 0.9. Recommend starting metformin on discharge as cardioprotective and as a way to lower her A1C. Recommendation discussed with Dr. Demarco. Education was completed. Patient has no questions or concerns.
[2016-09-22] MEDS ORDERED: LOPRESSOR25 MG PO (10:53)
[2016-09-22] MEDS ORDERED: BRILINTA90 MG PO (10:56)
[2016-09-22] MEDS ORDERED: TESSALON PERLE100 MG PO (10:57)
[2016-11-18] MEDS ORDERED: ALBUTEROL2.5 MG/31 INH (09:34)
[2016-11-18] MEDS ORDERED: OXYGEN M-15 INH (09:37)
== END 2016-09-22 13:00 | disposition disaster alternative care site (69) | DRG 249 ==
LOC: GPCU 04:49
PROVIDERS: Hospitalist; Internal Medicine Interventional Cardiology; ADMIT Internal Medicine
DX: I21.19 ST elevation (STEMI) myocardial infarction involving other coronary artery of inferior wall (principal); N17.9 Acute kidney failure, unspecified; J44.9 Chronic obstructive pulmonary disease, unspecified; E11.9 Type 2 diabetes mellitus without complications; I10 Essential (primary) hypertension; D72.829 Elevated white blood cell count, unspecified; E03.9 Hypothyroidism, unspecified; I25.119 Atherosclerotic heart disease of native coronary artery with unspecified angina pectoris; I25.84 Coronary atherosclerosis due to calcified coronary lesion; R91.8 Other nonspecific abnormal finding of lung field; K21.9 Gastro-esophageal reflux disease without esophagitis; F17.210 Nicotine dependence, cigarettes, uncomplicated; F41.9 Anxiety disorder, unspecified; K52.89 Other specified noninfective gastroenteritis and colitis; Z85.3 Personal history of malignant neoplasm of breast; Z92.21 Personal history of antineoplastic chemotherapy; Z82.49 Family history of ischemic heart disease and other diseases of the circulatory system; Z79.84 Long term (current) use of oral hypoglycemic drugs; Z79.82 Long term (current) use of aspirin
CPT/HCPCS: C1725; C1769; C1876; C1887; J0130; J0461; J1644; J2270; J2370; J2405; J3475; J7030; J7060

== ENCOUNTER → 2016-09-20 | Outpatient (CLI) | payer MEDICARE, OTHER ==
[~2016-09-20] MED LIST: ADVAIR 250-501 EACH INH; ALBUTEROL2.5 MG/31 INH; ALEVE220 M1 PO; ASPIRIN LO-DOSE81 MG PO; ATIVAN 1 MG1 MG PO; BRILINTA90 MG PO; GLUCOSAMINE H1500 MG PO; GLUCOTROL XL10 MG PO; HYDREA500 MG PO; LEVOTHROID (S112 MCG PO; LIPITOR80 MG PO; LOPRESSOR25 MG PO; LOPRESSOR50 MG PO; MAG-OX-400(241400 MG PO; MEDROL4 M1; NITROSTAT0.4 MG SL; NORVASC5 MG PO; OXYGEN M-15 INH; PERCOCET 5-3251 EACH PO; PLAVIX75 MG PO; PRILOSEC20 MG PO; SLEEP AID50 MG PO; TESSALON PERLE100 MG PO; THERA-VITE W/ B1 TAB PO; VASOTEC2.5 MG PO; XALATAN2.5 ML OPHTH; ZOLOFT50 MG PO
== END | disposition disaster alternative care site (69) ==
LOC: GAIR 05:28
DX: I21.4 Non-ST elevation (NSTEMI) myocardial infarction (principal); E11.9 Type 2 diabetes mellitus without complications; J44.9 Chronic obstructive pulmonary disease, unspecified; E03.9 Hypothyroidism, unspecified; K21.9 Gastro-esophageal reflux disease without esophagitis; R07.89 Other chest pain; R11.0 Nausea; R45.1 Restlessness and agitation; Z85.3 Personal history of malignant neoplasm of breast; Z87.891 Personal history of nicotine dependence; Z79.82 Long term (current) use of aspirin; Z79.84 Long term (current) use of oral hypoglycemic drugs; Z79.899 Other long term (current) drug therapy; Z88.2 Allergy status to sulfonamides; Z88.5 Allergy status to narcotic agent
CPT/HCPCS: A0422; A0431; A0436; J0130; J2405; J7050

== ENCOUNTER 2016-10-09 10:19 | Inpatient (IN) | payer MEDICARE, OTHER ==
[~2016-10-09] VITALS: Ht 165.1 cm; Wt 70.1 kg
--- NOTE | ~2016-10-09 | CATH ---
Cardiac Diagnostic Report Demographics Patient Name ROBERT Greenberg Gender Female Date of 1940 Age 76 year(s) Patient Number [id number] Date of Study 10/09/2016 Visit Number [id number] Room Number G[address] [place] [id number] Ht 165.1 cm Wt 70 kg Referring Arnoldo Ellington Primary Physician Physician Performing [place] Secondary Physician Physician Tamiko AMOS Diagnostic [facility] Assisting Physician Physician Tamiko AMOS Interventional Physician Computer Network And Systems Engineer Physician Findings and Conclusions Diagnostic Findings and Conclusion 1. Proximal RCA stent patent post thrombolytics with ALEENA III flow. Distal PL 50% stenosis. 2. Left system unchanged from previous cath on 09/20/2016. Pt has ostial LM 80% stenosis. 3. Awaiting lung biopsy for possible lung cancer. Diagnostic Recommendations 1. Stent thrombosis likely secondary to interruption in DAPT. 2. Reiterated importance of DAPT and instructed patient not to stop. 3. Follow up with Dr. Lara in [place] in one week. Procedure Description The patient was brought to the diagnostic cardiac catheterization-EP laboratory by emergency personal. Physician deemed procedure as EMERGENT. The planned puncture-incision site(s) were shaved and prepped with ChloraPrep and draped in the usual sterile manner. Conscious sedation, supplemental oxygen, and pain control medications were delivered by a registered nurse under physician guidance. Surface ECG rhythm, blood pressure measurement, and pulse oximetry were monitored throughout the procedure. Arterial access. The access site was infiltrated with lidocaine. The vessel was entered with the Seldinger technique. A sheath was advanced into the vessel and used for catheter placement. Selective left coronary angiography. A catheter was advanced into the left coronary vessel ostium under Fluoroscopic guidance. Contrast was injected by hand. Images were obtained in multiple projections. Selective right coronary angiography. A catheter was advanced into the right coronary vessel ostium under fluoroscopic guidance. Contrast was injected by hand. Images were obtained in multiple projections. Left heart catheterization. A catheter was advanced across the aortic valve to the left ventricle under fluoroscopic guidance. Resting hemodynamics were obtained. Arterial artery hemostasis was achieved. The patient was transferred to ICU via cart accompanied by a nurse. The patient left the laboratory in stable condition. Diagnostic Cath Status: Emergency Procedure Procedure Type Diagnostic procedure:Angiography:, Coronary Angios w/[facility] Indications: Acute PA and Prior PCI with stent placement. Angiographic Findings Dominance: Mixed Cardiac Arteries and Lesion Findings LMCA: Lesion on LMCA: Ostial.80% stenosis .Lesion plaque is ruptured. Comments:Heavily calcified. Lesion on LMCA: Distal subsection.60% stenosis . LAD: Abnormal.Heavily calcified - diffuse plaque. Diagonal 1 small, okay. LCx: Large, non-dominant. Mild plaque. OM 1 small, okay. OM 2 large, normal. RCA: Abnormal.Calcified. Stent patent post thrombolytics. PL 50% stenosis distally. PDA medium, normal. There is a previous stent on Mid RCA Mid subsection showing wide patency. Coronary Tree Procedure Data Procedure Date Date: 10/09/2016Start: 11:56 AM Entry Locations - Retrograde Percutaneous access was performed through the Right Radial artery (Primary location). A 6 Fr sheath was inserted. Unsuccessful closure attempt was performed using: an R band. Hemostasis was successfully obtained using Mechanical Compression. Closure Comments: ryan placement. 6 ml air. Procedure Medications Order and Administration + + +-------+------+ !Time !Medication !Dosage !Route ! + + +-------+------+ !10/09/2016 11:54 AM !Zofran !4 mg !I.V. ! + + +-------+------+ Devices Used - A5 Fr. BS JR 4 Diag. Catheterwas used for:Right coronary angiography.Unable to cannulate the vessel. - A5 Fr. BS JL 3.5 Diag. Catheterwas used for:Left coronary angiography. - A6 Fr. JR4 Guide Catheterwas used for:Was not used. Contrast Material - Isovue 32033 ml Fluoroscopy Time: Diagnostic: 5:30 minutes. Total: 5:30 minutes. Fluoroscopy Dose: Diagnostic: 378 mGy. Total: 378 mGy. Estimated Blood Loss: 10 ml. Medical History Performed Procedures and Imaging Results - PCIwas performed on 09/20/2016.(PCI of RCA). - Echocardiographywas performed on 09/21/2016.(EF 60-65%). Allergies - Codiene. - Sulfa. Risk Factors The patient risk factors include:prior PCI on 09/20/2016;hypercholesterolemia, hypertension, family history of premature CAD, diabetes mellitus, chronic lung disease, dyslipidemia, Current/Recent(w/in 1 year) tobacco use and prior PA . Admission Data Admission Date: 10/09/2016 Admission Time: 10:19 AM Arrival Date: 10/09/2016 Arrival Time: 12:00 AM Admit Source: [facility] facility Insurance Payors: Medicare. Admission Medications + +------+------+ + + + + !Medication !Dosage!Times !Last !Last !Administered !Comments ! ! ! !Per !Delivery !Delivery ! ! ! ! ! !Day !Date !Time ! ! ! + +------+------+ + + + + !Aspirin ! ! !10/09/2016 !12:00 AM ! ! ! !(any) ! ! ! ! ! ! ! + +------+------+ + + + + !Clopidogrel! ! ! ! ! ! ! + +------+------+ + + + + Clinical Evaluation Leading to Procedure - The patient's CAD presentation was assessed as: STEMI.The symptom onset was first noted on 10/09/2016 09:00 AM(time was estimated). - The patient recevied thrombolytic therapy as an urgent treatment for STEMI on 10/09/2016 10:35 AM. 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 Snapshots Hemodynamics Condition: Rest O2 Consumption: Estimated: 171.25Heart Rate: 86 bpm Pressures (mmHg) +-----+ + !Site !Pressure ! +-----+ + !AO !130/47 (82) ! +-----+ + !LV !123/41 ,39 ! +-----+ + !AO !119/60 (86) ! +-----+ + Shunts Oxygen Values O2 Capacity 149.6 O2 Consumption 171.25 Signatures dtt: TAMIKO SOTO dtd: 10/09/16 1156 Physician Self Edit
--- NOTE | ~2016-10-09 | HP ---
PATIENT'S NAME: CHARLEE [facility] AGE: 76 Y [address] ROOM: [address] [address] LOCATION: GICU ADMIT DATE: 10/09/2016 History & Physical DISCHARGE DATE: FAMILY PHYSICIAN: PHYSICIAN, UNKNOWN ATTENDING PHYSICIAN: ROCÍO SOTO DATE OF SERVICE: REASON FOR TRANSFER: Acute ST-elevation myocardial infarction. HISTORY OF PRESENT ILLNESS: The patient is a very pleasant, 76-year-old female who actually had an inferior ST-elevation myocardial infarction on 09/20/2016. She woke up at 1 a.m. that day and had inferior ST elevation. She was transferred to [facility] and had PCI of the proximal RCA by Dr. Lara with a bare-metal stent, 2.5 x 24 Rebel stent, due to her history of possible lung cancer and the need for biopsying the mass. The patient reports that she ran out of Brilinta and is unsure if she was not covered with DAPT, and a prescription was called in for Plavix. She reports her last dose of Brilinta was on Wednesday, and she started Plavix 75 mg on . Today, the patient went to the ER in [place], and she basically started having severe chest pain as well as confusion. On the ECG, she was noted to have ST-elevation [place], and basically, she was accepted for transfer here for emergent PCI. However, they did not have a helicopter available, and the plan was to transfer by ambulance; however, by the time they were getting ready to transfer the patient, the inferior ST elevation was getting worse, and the chest pain was getting worse. Heparin bolus drip was started there, as well as Plavix 600 was given. Due to delay in transfer, she was also given tenecteplase after she was screened for contraindications. She also received a total of 6 of morphine for pain, and no nitroglycerin was given due to hypotension. En route, she reports her chest pain essentially resolved. She was also started on dopamine for hypotension, and her blood pressure is quite stable. Upon arrival here, the patient really does not have any chest pain. She seems to be fairly comfortable. REVIEW OF SYSTEMS: Discussed with the patient. Pertinent positives are chest pain, shortness of breath, fatigue, and confusion. PAST MEDICAL HISTORY: 1. Type 2 diabetes. 2. COPD. 3. Tobacco abuse, one pack per day, more than 50 years. 4. Hypothyroidism. PATIENT'S NAME: CHARLEE [facility] AGE: 76 Y [address] ROOM: [place] [address] LOCATION: GICU ADMIT DATE: 10/09/2016 History & Physical DISCHARGE DATE: FAMILY PHYSICIAN: PHYSICIAN, UNKNOWN ATTENDING PHYSICIAN: ROCÍO SOTO 5. GERD. 6. Hypertension. 7. Breast cancer, status post mastectomy in 1998. Now, the latest CT scan showed a lung mass, and getting a biopsy for that. PAST SURGICAL HISTORY: Left mastectomy, heart catheterization on 09/20/2016, had PCI with bare-metal stent to RCA, and tonsillectomy. SOCIAL HISTORY: Current smoker. No alcohol or illicit drug abuse. FAMILY HISTORY: Positive for lung cancer. No clear-cut history of premature coronary artery disease or sudden cardiac . ALLERGIES: CODEINE AND SULFA. MEDICATIONS: 1. Synthroid. 2. Omeprazole. 3. Multivitamins. 4. Glucosamine. 5. Aspirin. 6. Amlodipine. 7. Hydroxyurea. 8. Sertraline. 9. Tessalon Perles. 10. Plavix. LABORATORY AND DIAGNOSTIC DATA: EKG: Inferior ST-elevation [place], sinus rhythm. Lab work pending. Chest x-ray: Right middle lobe mass with adenopathy as seen previously. Positive for emphysema. PHYSICAL EXAMINATION: VITAL SIGNS: Heart rate is in the 60s, blood pressure 110/70, afebrile, and O2 saturation is 99% on room air. GCS score 15. HEENT: Atraumatic, normocephalic. CARDIOVASCULAR: Heart rate regular rhythm. S1 and S2. No murmurs. LUNGS: Clear to auscultation bilaterally. ABDOMEN: Soft. Bowel sounds positive. MUSCULOSKELETAL: Good range of motion. LOWER EXTREMITIES: No edema. PATIENT'S NAME: CHARLEE [facility] AGE: 76 Y [address] ROOM: [place] [address] LOCATION: GICU ADMIT DATE: 10/09/2016 History & Physical DISCHARGE DATE: FAMILY PHYSICIAN: PHYSICIAN, UNKNOWN ATTENDING PHYSICIAN: ROCÍO SOTO SKIN: Warm and dry. NEUROLOGIC: Alert and oriented. No focal deficits. IMPRESSION AND PLAN: 1. Inferior ST-elevation myocardial infarction secondary to likely stent thrombosis. She did have a bare-metal stent on 09/20/2016. Unfortunately, given her need for lung biopsy, she is not a candidate for PRATIK, she needs lung biopsy and definitive diagnosis and treatment for lung cancer. Given her stent thrombosis, it will be high risk to place another PRATIK and delay treatment or interrupt DAPT for biopsy. 2. Probable lung cancer, awaiting biopsy. This may need to be postponed for 2 to 4 weeks, and we will likely start Brilinta. 3. Since she did get thrombolytics, she was given Plavix en route; however, tomorrow, the plan will be to switch to Brilinta given that she did have stent thrombosis for more potent and effective antiplatelet therapy in the setting of inferior stent thrombosis. 4. Hypertension. Currently, she is hypotensive, on dopamine. We will try to wean off if possible. 5. Hypothyroidism. Continue current medications. 6. Diabetes mellitus. We will get A1c and continue her home medications. Thank you very much Dr. Lara for allowing us to participate in the care of Mrs. Chi. ROCÍO SOTO MD AT/modl /[id number] D: 834 T: 720 HISTORY & PHYSICAL
--- NOTE | ~2016-10-09 | DS ---
PATIENT'S NAME: CHARLEE JONES [facility] AGE: 76 Y [address] ROOM: [address] [place], [place] [address] LOCATION: GPCU ADMIT DATE: 10/09/2016 Discharge Summary DISCHARGE DATE: 10/12/2016 FAMILY PHYSICIAN: Dread Mclaughlin MD ATTENDING PHYSICIAN: Tamiko Soto PRIMARY DISCHARGE DIAGNOSIS: Inferior ST-elevation myocardial infarction. SECONDARY DISCHARGE DIAGNOSES: 1. Lung mass, awaiting biopsy. 2. Hyperlipidemia. 3. Hypertension. 4. Diabetes mellitus type 2, poorly controlled. PROCEDURE: Selective coronary angiography and TNK infusion. HOSPITAL COURSE: This is a 76-year-old female, admitted with an acute inferior ST-elevated myocardial infarction. She recently underwent RCA stenting for another ST-elevated myocardial infarction on 09/20/2016. There was notation of her recently being changed from Brilinta to Plavix due to the patient running out of her Brilinta prescription. Please see history and physical for full details of admission. She was emergently taken to the catheterization suite, where she underwent a selective coronary angiography through the right radial artery and found to have a patent right coronary artery stent after TNK infusion. Please see cath report for full details of procedure. The patient was encouraged to continue compliance with dual antiplatelet therapy to prevent this from happening again. Post-procedure, she was transferred to the intensive care unit for continued monitoring of her procedure site as well as post-procedure vital signs, EKG, and site monitoring. She was subsequently restarted on her Brilinta. Continued to trend cardiac enzymes through her hospitalization, and she did walk up in the halls for cardiac rehab activities without further complaints of chest pain. She was seen by Medical Oncology on 10/11/2016. There is need for her to undergo a lung biopsy due to the known mass, but unable to do so for over 6 weeks. On 10/12/2016, she was found to be in stable condition to be discharged to home. DIAGNOSTICS: Cardiac enzyme trend during hospitalization showed a CPK of 67, then 64, then 40; CK-MB of 2.7, then 2.9, then 1.4; and troponin I of 2.41, then 2.02 and finally 1.35. She had a proBNP level of 4305. Lipid evaluation showed a total cholesterol of 97, triglycerides 113, HDL of 45, and LDL of 30. DISCHARGE ORDERS: The patient is discharged to home with a cardiac diet of low fat, low salt, and low cholesterol. She has a post-catheterization wrist precautions as her activity restrictions. She is to follow up with her PATIENT'S NAME: CHARLEE JONES [facility] AGE: 76 Y [address] ROOM: [place] [address] LOCATION: GPCU ADMIT DATE: 10/09/2016 Discharge Summary DISCHARGE DATE: 10/12/2016 FAMILY PHYSICIAN: Dread Mclaughlin MD ATTENDING PHYSICIAN: Tamiko Soto primary care provider in 1 week as well as following up with Dr. Carlos Lara in [place] in 1 week with an EKG. She is to begin cardiac rehab in [place] in 1 week. DISCHARGE MEDICATIONS: 1. Glipizide extended release 20 mg p.o. twice daily. 2. Levothyroxine 112 mcg p.o. daily. 3. Prilosec 20 mg p.o. twice daily. 4. Multivitamin with beta-carotene 1 tablet p.o. daily. 5. Aspirin 81 mg p.o. daily. 6. Norvasc 2.5 mg p.o. daily at bedtime. 7. Hydroxyurea 1000 mg p.o. daily at bedtime. 8. Magnesium oxide 400 mg p.o. twice daily. 9. Xalatan 1 drop ophthalmically daily at bedtime. 10. Sleep Aid capsules 50 mg p.o. daily at bedtime. 11. Percocet 5/325 mg p.o. every 6 hours as needed for pain. 12. Advair 250/50 inhaled twice daily as needed for congestion and wheezing. 13. Lipitor 80 mg p.o. daily. 14. Vasotec 2.5 mg p.o. daily. 15. Ativan 1 mg p.o. daily at bedtime. 16. Lopressor 50 mg p.o. twice daily. 17. Brilinta 90 mg p.o. twice daily. 18. Nitroglycerin 0.4 mg sublingual as needed for chest pain. 19. Medrol Dosepak as directed for hives. DISPOSITION: The patient is discharged to home in stable condition. She is given her discharge instructions, which include discharge restrictions for diet and activity as well as followup appointments and new medications and prescriptions. CA LARA APRN FOR TAMIKO MD DANNIELLE SOTO/alexandro /[id number] d: 10/15/16 0423 t: 10/23/16 1554, DISCHARGE SUMMARY
[~2016-10-09 10:19] MED LIST changes: -ALBUTEROL2.5 MG/31 INH; -ATIVAN 1 MG1 MG PO; -LOPRESSOR50 MG PO; -MEDROL4 M1; -NITROSTAT0.4 MG SL; -OXYGEN M-15 INH; -PLAVIX75 MG PO
[2016-10-09] MEDS ORDERED: PLAVIX75 MG PO (13:27)
[2016-10-09] MEDS ORDERED: ATIVAN 1 MG1 MG PO (13:27)
--- NOTE | 2016-10-09 17:05 | NUR ---
Significant Event: CARDIO: TNKase given this am in [place]. Taken to laborer [place] and with no intervention. Right radial access, no hematoma or bleeding. Dopamine off at 1500. Heparin gtt at 800 units/h. SBP 90s-100s. HR 100-110.
--- NOTE | 2016-10-10 05:37 | NUR ---
Significant Event: PATIENT IS A/O, PLEANSANT ET COOPERATIVE. C/O PAIN TO RIGHT SIDE OF NECK HEAR OCCIPITAL LOBE WHEN TURNING HEAD, ALLEVIATED WITH MASSAGE, WARM TOWEL ET PRN PAIN MEDICATIONS. HEPARING GTT PER PROTOCOL.4 BEAT RUN OF VTACH PER TELE, DR IYER CALLED ET IS AWARE, NO NEW ORDERS. PATIENTS DAUGHTER IS AT BEDSIDE DURNG EVENING, SELF TRANSFERS PATIENT TO BEDSIDE CHAIR. EDUCATED PATIENT ET DAUGHTER OF THE RISKS OF A FALL ET ORIENTED THEM TO APPROPRIATE SAFETY MEASURES IN PLACE TO PREVENT THAT. Follow up: CONT TO MONITOR
[2016-10-10 06:14] LABS: BASOPHIL % 0.3 %; EOSINOPHIL # 0.4 K/uL (0.0-0.5); EOSINOPHIL % 4.1 %; HEMATOCRIT 27.5 % (33.0-46.0); HEMOGLOBIN 9.3 g/dL (10.0-15.0); IMMATURE GRANULOCYTE # 0.1 K/uL (0.0-0.3); IMMATURE GRANULOCYTE % 0.5 %; LYMPHOCYTE # 1.9 K/uL (0.8-4.0); LYMPHOCYTE % 18.6 %; MCH 35.4 pg (27.0-34.0); MCHC 33.8 gm/dL (32.0-36.5); MCV 104.6 fl (83.0-98.0); MONOCYTE # 0.7 K/uL (0.0-1.0); MONOCYTE % 6.7 %; MPV 9.6 fl (9.4-12.4); NEUTROPHIL # (ANC) 7.1 K/uL (1.8-7.8); NEUTROPHIL % 69.8 %; NRBC % 0 /100WBC (0-0.00); PLATELET COUNT 592 K/uL (150-450); RBC 2.63 M/uL (3.50-5.50); RDW-CV 13.8 % (11.9-14.6); WBC 10.2 K/uL (4.0-11.0)
[2016-10-10 06:28] LABS: ALBUMIN 2.4 gm/dL (3.5-5.0); ALK PHOS 125 IU/L (33-138); ALT 28 IU/L (12-78); ANION GAP 11.6 (10.0-19.0); AST 39 IU/L (10-40); BLOOD UREA NITROGEN 21 mg/dL (6-24); CALCIUM 7.6 mg/dL (8.5-10.5); CHLORIDE 102 mMol/L (96-110); CO2 25 mMol/L (22-32); CREATININE 0.9 mg/dL (0.5-1.1); ESTIMATED GFR (MDRD EQUATION) > 60; POTASSIUM 4.6 mMol/L (3.7-5.1); SODIUM 134 mMol/L (135-145); TOTAL PROTEIN 6.6 g/dL (6.0-8.4)
[2016-10-10 06:29] LABS: TOTAL BILIRUBIN 0.2 mg/dL (0.0-1.5)
--- NOTE | 2016-10-11 05:11 | NUR ---
Significant Event: A/O x3. Afebrile. c/o itchiness from redness/rashlike symptoms on torso and legs. gave scheduled benadryl and prn tylenol for discomfort. vss on RA/1L hs. Hep gtt @ 1400/hr. Follow up: continue to monitor per plan of care.
[2016-10-11 05:41] LABS: BASOPHIL % 0.2 %; EOSINOPHIL # 0.6 K/uL (0.0-0.5); EOSINOPHIL % 5.9 %; HEMATOCRIT 26.8 % (33.0-46.0); HEMOGLOBIN 9.2 g/dL (10.0-15.0); IMMATURE GRANULOCYTE # 0.1 K/uL (0.0-0.3); IMMATURE GRANULOCYTE % 0.6 %; LYMPHOCYTE # 2.2 K/uL (0.8-4.0); LYMPHOCYTE % 20.4 %; MCH 35.2 pg (27.0-34.0); MCHC 34.3 gm/dL (32.0-36.5); MCV 102.7 fl (83.0-98.0); MONOCYTE # 0.8 K/uL (0.0-1.0); MONOCYTE % 7.2 %; MPV 9.8 fl (9.4-12.4); NEUTROPHIL # (ANC) 7.1 K/uL (1.8-7.8); NEUTROPHIL % 65.7 %; NRBC % 0 /100WBC (0-0.00); PLATELET COUNT 615 K/uL (150-450); RBC 2.61 M/uL (3.50-5.50); RDW-CV 13.5 % (11.9-14.6); WBC 10.8 K/uL (4.0-11.0)
[2016-10-11 06:00] LABS: ANION GAP 11.9 (10.0-19.0); BLOOD UREA NITROGEN 17 mg/dL (6-24); CALCIUM 8.2 mg/dL (8.5-10.5); CHLORIDE 105 mMol/L (96-110); CO2 24 mMol/L (22-32); CREATININE 0.7 mg/dL (0.5-1.1); ESTIMATED GFR (MDRD EQUATION) > 60; POTASSIUM 3.9 mMol/L (3.7-5.1); SODIUM 137 mMol/L (135-145)
--- NOTE | 2016-10-11 16:50 | NUR ---
Significant Event: STAYED ONE MORE DAY TO GET A LITTLE MORE FINE TUNED. MG 1.3 THIS AM, 2 GMS MG IV, BROKE OUT IN HIVES THIS AM, STATED MEDROL DOSE PK, PT IS GETTING SOME RELIEF.SHE HAS BEEN UP WALKING IN THE HALLS WITH DAUGHTER, STEADY ON FEET. INCREASED LOPRESSOR TO 50 MG BID FOR HRT RATES IN THE 120-140'S THIS AM, NOW MOSTLY IN THE 80'S. HEPARIN OFF. Follow up: HOME IN AM, DC ORDERS FILLED OUT AND ON CHART BUT NOT TAKEN OFF INCASE OF CHNAGES IN THE AM.
--- NOTE | 2016-10-12 05:29 | NUR ---
Significant Event: A/O X3. AFEBRILE. DENIES PAIN. VSS ON RA/1L HS. LS CLEAR/DIM. ACCUCHECK 474, NOTIFIED MD. 12 UNITS GIVEN. RECHECK TWO HOURS LATER AND BS 311. GAVE 9 UNITS. PATIENT RESTED WELL DURING THE NIGHT. Follow up: CONTINUE TO MONITOR PER PLAN OF CARE.
[2016-10-12] MEDS ORDERED: LOPRESSOR50 MG PO (09:08)
[2016-10-12] MEDS ORDERED: BRILINTA90 MG PO (09:10)
[2016-10-12] MEDS ORDERED: NITROSTAT0.4 MG SL (09:13)
[2016-10-12] MEDS ORDERED: MEDROL4 M1 (09:16)
--- NOTE | 2016-10-12 10:34 | NUR ---
Patient dismissed to home, walked out to private auto, accompained by SN Celena. VSS. Denies pain. Patient up in halls walking, no complaints. Patient educated on new home medication list and new medications, post heart cath instructions, prevention of DVT. Patient given instructions on prescriptions and to take them to her local pharmacy. Follow up appointments discussed. Patient verbalized understanding of discharge instructions.
[2016-11-18] MEDS ORDERED: ALBUTEROL2.5 MG/31 INH (09:34)
[2016-11-18] MEDS ORDERED: OXYGEN M-15 INH (09:37)
== END 2016-10-12 10:36 | disposition disaster alternative care site (69) | DRG 282 ==
LOC: GPCU 10:19 → GICU 10:19 → GPCU 10-10 10:58
PROVIDERS: ADMIT Internal Medicine Interventional Cardiology
PROC: 4A023N7 Measurement of Cardiac Sampling and Pressure, Left Heart, Percutaneous Approach (ICD-10-PCS; principal; 2016-10-09)
PROC: B216YZZ Fluoroscopy of Right and Left Heart using Other Contrast (ICD-10-PCS; principal; 2016-10-09)
DX: I21.19 ST elevation (STEMI) myocardial infarction involving other coronary artery of inferior wall (principal); E11.65 Type 2 diabetes mellitus with hyperglycemia; J44.9 Chronic obstructive pulmonary disease, unspecified; R91.8 Other nonspecific abnormal finding of lung field; E78.5 Hyperlipidemia, unspecified; I10 Essential (primary) hypertension; Z79.82 Long term (current) use of aspirin; F17.200 Nicotine dependence, unspecified, uncomplicated; E03.9 Hypothyroidism, unspecified; K21.9 Gastro-esophageal reflux disease without esophagitis; Z85.3 Personal history of malignant neoplasm of breast; Z90.12 Acquired absence of left breast and nipple
CPT/HCPCS: A9270; C1887; J0461; J1265; J1644; J1940; J2250; J2370; J2405; J3010; J3475; J7030

== ENCOUNTER → 2016-11-25 | Outpatient (CLI) | payer MEDICARE, OTHER ==
[~2016-11-25] MED LIST changes: +ALBUTEROL2.5 MG/31 INH; +ATIVAN 1 MG1 MG PO; +LOPRESSOR50 MG PO; +MEDROL4 M1; +NITROSTAT0.4 MG SL; +OXYGEN M-15 INH; +PLAVIX75 MG PO
== END ==
LOC: GOPD 11-18
DX: R91.8 Other nonspecific abnormal finding of lung field (principal); D75.81 Myelofibrosis; I21.11 ST elevation (STEMI) myocardial infarction involving right coronary artery
CPT/HCPCS: J2001; J2250; J3010

== ENCOUNTER → 2016-12-15 | Outpatient (CLI) | payer MEDICARE, OTHER | LOC: GKIC 11:20 | DX: D75.81 Myelofibrosis (principal); R91.1 Solitary pulmonary nodule; R91.8 Other nonspecific abnormal finding of lung field; C79.51 Secondary malignant neoplasm of bone; I25.2 Old myocardial infarction | CPT/HCPCS: A9552 ==